=== PATIENT | female | born 1975 | race Caucasian/White ===

== ENCOUNTER 2016-08-30 07:29 | Emergency (ER) | payer MEDICAID ==
[~2016-08-30] VITALS: Ht 154.9 cm; Wt 68.5 kg
[2016-08-30 08:33] VITALS: BP 128/68
== END 2016-08-30 09:10 | disposition home or self-care (01) ==
LOC: ED 07:29
DX: M25.511 Pain in right shoulder (principal)
CPT/HCPCS: J1885; J3010; Q0162